=== PATIENT | female | born 1960 | race Asian ===

== ENCOUNTER 2019-11-18 09:06 | Emergency (ER) | payer OTHER ==
[~2019-11-18] VITALS: Ht 157.5 cm; Wt 56.7 kg
[2019-11-18 09:11] VITALS: Ht 157.5 cm; Wt 56.7 kg
[2019-11-18 10:12] LABS: CALCIUM 9.1 mg/dL (8.5-10.1); CARBON DIOXIDE 28.3 mmol/L (21-32); CHLORIDE SERUM 106 mmol/L (98-107); CREATININE SERUM 0.9 mg/dL (0.6-1.0); GFR1 > 60 mL/min; GLUCOSE SERUM 138 mg/dL (74-106); POTASSIUM SERUM 4.3 mmol/L (3.5-5.1); SODIUM SERUM 140 mmol/L (136-145)
[2019-11-18 10:26] LABS: FREE T4 1.02 ng/dL (0.76-1.46)
[2019-11-18 10:27] LABS: BASOPHIL % 0.4 % (0-2); PLATELET COUNT 134 x10^3mcL (130-400)
[2019-11-18 11:16] VITALS: BP 97/54
== END 2019-11-18 11:16 | disposition home or self-care (01) ==
LOC: ED 09:06
PROVIDERS: Emergency Medicine
DX: R42 Dizziness and giddiness (principal); R11.2 Nausea with vomiting, unspecified; Z98.890 Other specified postprocedural states
CPT/HCPCS: 84439; J2405; J7030; J8597; Q0092